=== PATIENT | male | born 1970 | race Caucasian/White ===

== ENCOUNTER 2021-08-27 04:00 | Emergency (ER) | payer MEDICAID, OTHER ==
[~2021-08-27] VITALS: Ht 185.4 cm; Wt 72.6 kg
--- NOTE | 2021-08-27 04:08 | NUR ---
Patient refused to have EKG at this time.
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
[2021-08-27] MEDS ORDERED: LORAZEPAM 0.5 MG TABLET PO ONE (04:30)
[2021-08-27] MEDS ORDERED: diphenhydrAMINE 50 MG CAPSULE PO ONE (04:30)
[2021-08-27] MEDS ORDERED: LORAZEPAM 1 MG TABLET ONE (04:41)
--- NOTE | 2021-08-27 04:41 | NUR ---
pt states he will comply and stay in bed. provided a warm blanket and tv for him.
[2021-08-27] MEDS ORDERED: diphenhydrAMINE 50 MG CAPSULE ONE (04:42)
[2021-08-27] MEDS ORDERED: BUSP5TAB3 PO (04:51)
[2021-08-27] MEDS ORDERED: OLAN2.5T3 PO (04:51)
[2021-08-27 06:12] LABS: HEMATOCRIT 38.2 % (36.7-47.1); MEAN CORPUSCULAR HEMOGLOBIN 29.8 uug (23.8-33.4); MEAN CORPUSCULAR VOLUME 87.4 fL (73.0-96.2); PLATELET COUNT (AUTO) 124 K/uL (152-348)
[2021-08-27 06:42] LABS: POTASSIUM 3.6 mmol/L (3.5-5.1)
[2021-08-27 06:47] LABS: BILIRUBIN,DIRECT 0.2 mg/dL (0.0-0.2); BILIRUBIN,TOTAL 0.5 mg/dL (0.2-1.0); TOTAL PROTEIN, SERUM 7.8 g/dL (6.4-8.2)
--- NOTE | 2021-08-27 07:23 | NUR ---
SYLAR received from ARIEL Mcintosh. Patient needs to give urine specimen JIMMY. Patient is resting comfortably on gurney with eyes closed, easily arousable, respiration:easy, NAD. Patient ate whole sandwich and one cup of juice earlier. Patient said that he will give urine as soon as he can.
--- NOTE | 2021-08-27 09:26 | NUR ---
Hot breakfast [email or web address]. Patient is still sleeping, easily arousable, unable to provide urine at this time.
--- NOTE | 2021-08-27 12:50 | NUR ---
Note avril in [facility] - 08/27/21 at 1250 by JEREMIAH Patient wants to wait in the ER waiting room, NAD, denies dizziness, no nausea, calm & cooperative.
--- NOTE | 2021-08-27 15:25 | NUR ---
Patient ambulated to bathroom with slow steady gait but forgot to provide urine specimen for studies. Patient is eating hospital-provided food tray with good appetite, NAD.
--- NOTE | 2021-08-27 16:19 | NUR ---
Patient is eating whole sandwich now with 2 cups of juice. Patient ate 100% of lunch tray earlier. Patient ambulated to bathroom and around ER department with brisk steady gait. Dr Faulkner witnessed patient's gait. [employer] card provided for transportation, pending written disharge papers from Dr Faulkner.
--- NOTE | 2021-08-27 16:44 | NUR ---
Patient was given written and verbal discharge instructions. Patient verbalized understanding and compliance of instructions. Patient is ambulatory with steady gait. Patient refuses offer of long-term placement. Patient was also given a list of available shelters in surrounding area. Patient refused to give urine specimen, MD is aware. Patient left ER in stable condition.
== END 2021-08-27 16:46 | disposition home or self-care (01) ==
LOC: ER 04:03
DX: F15.10 Other stimulant abuse, uncomplicated (principal); D69.6 Thrombocytopenia, unspecified; R74.01 Elevation of levels of liver transaminase levels
CPT/HCPCS: 36415; 80048; 80076; 82550; 84484; 85025; 93005; 99285; Q0163; 70030-TC; A4663